=== PATIENT | male | born 1995 | race Two or more races ===

== ENCOUNTER 2016-06-23 18:44 | Emergency (ER) | payer MEDICAID, OTHER ==
--- NOTE | 2016-06-23 19:54 | RAD ---
Name: TINO BAI Exam: Left knee Comparison: None Clinical history: Penetrating trauma Findings: 2 views of the left knee are submitted. Bone density is normal. Joint spaces are maintained. There is no fracture, dislocation, periosteal reaction, foreign body or joint effusion. Impression: Negative two-view left knee
== END 2016-06-23 20:24 | disposition home or self-care (01) ==
LOC: ED 18:44
DX: S81.042A Puncture wound with foreign body, left knee, initial encounter (principal); W29.4XXA Contact with nail gun, initial encounter; Y93.01 Activity, walking, marching and hiking; Y92.9 Unspecified place or not applicable

== ENCOUNTER 2016-07-13 11:37 | Emergency (ER) | payer OTHER ==
[2016-07-13] MEDS ORDERED: ALBUTEROL/IPRATROPIUM 2.5/0.5 MG 3 ML/EACH DOSE ONE (12:18)
[2016-07-13] MEDS ORDERED: PREDNISONE 20 MG TABLET ONE (12:50)
== END 2016-07-13 13:16 | disposition home or self-care (01) ==
LOC: ED 11:37
DX: J45.901 Unspecified asthma with (acute) exacerbation (principal)
CPT/HCPCS: 99283 ×2; J7512